=== PATIENT | female | born 1985 ===

== ENCOUNTER 2017-07-21 14:00 | Emergency (ER) | payer SELFPAY ==
[2017-07-21 14:12] VITALS: TEMP 96
[2017-07-21 15:15] LABS: BASO # 0.1 K/uL (0.0-0.2); BASO % 0.8 % (0.0-2.0); EOS # 0.1 K/uL (0.0-0.7); HEMATOCRIT 33.7 % (34.0-47.0); LYMPH # 2.1 K/uL (1.0-4.3); LYMPH % 25.7 % (20.0-40.0); MEAN CELL VOLUME 87.2 fl (81.0-99.0); MEAN CORPUSCULAR HEMOGLOBIN 29.9 pg (27.0-31.0); MEAN CORPUSCULAR HGB CONC 34.3 g/dL (33.0-37.0); MEAN PLATELET VOLUME 8.8 fl (7.2-11.7); MONO # 0.5 K/uL (0.0-0.8); MONO % 5.9 % (0.0-10.0); NEUT # 5.5 K/uL (1.8-7.0); NEUT % 66.6 % (50.0-75.0); NRBC % 0.1 % (0.0-0.0); RED CELL DISTRIBUTION WIDTH 12.9 % (11.5-14.5); WHITE BLOOD COUNT 8.3 K/uL (4.8-10.8)
[2017-07-21 15:34] LABS: ALB/GLOB RATIO 1.4 (1.0-2.1); ALKALINE PHOSPHATASE 52 U/L (38-126); ALT/SGPT 27 U/L (9-52); AST/SGOT 22 U/L (14-36); BILIRUBIN,TOTAL 0.1 mg/dl (0.2-1.3); BLOOD UREA NITROGEN 10 mg/dl (7-17); CALCIUM 9.3 mg/dL (8.4-10.2); CARBON DIOXIDE 23 mmol/L (22-30); CHLORIDE 104 mmol/L (98-107); GFR AFRICAN-AMERICAN > 60; GLUCOSE,RANDOM 90 mg/dL (65-105); POTASSIUM 3.8 MMOL/L (3.6-5.0); SODIUM 141 mmol/l (132-148); TOTAL PROTEIN 7.3 G/DL (6.3-8.2)
--- NOTE | 2017-07-21 15:34 | ED PDOC ---
HPI: General Adult Time Seen by Provider: 07/21/17 14:28 Chief Complaint (Nursing): Abdominal Pain History Per: Patient Additional Complaint(s): Pt. states for the past 2-3 days she's had constant non-radiating suprapubic pain. Pt. states she is currently ~7 weeks but has yet to get any care. LMP 05/29/2017. . Reports no hx of previous ectopic pregnancies. Denies N/V/D, fever, previous abdominal surgeries, melena, hematochezia, BRBPR, dysuria, flank pain, back pain, vaginal bleeding, vaginal discharge. Past Medical History Reviewed: Historical Data, Nursing Documentation, Vital Signs Vital Signs: Last Vital Signs Temp 96.0 F L 07/21/17 14:10 Pulse 73 07/21/17 14:10 Resp 16 07/21/17 14:10 BP 100/50 L 07/21/17 14:10 Pulse Ox 99 07/21/17 15:36 - Surgical History Surgical History: No Surg Hx - Family History Family History: States: No Known Family Hx - Home Medications Home Medications: Ambulatory Orders Medication Instructions Recorded Multivit/Folic Acid/I 1 tab PO DAILY #30 tab 07/21/17 [ Plus] - Allergies Allergies/Adverse Reactions: Allergies Allergy/AdvReac Type Severity Reaction Status Date / Time No Known Allergies Allergy Verified 07/21/17 14:10 Review of Systems ROS Statement: Except As Marked, All Systems Reviewed And Found Negative Genitourinary Female: Positive for: Pelvic Pain Physical Exam - Physical Exam Appears: Positive for: Well, Non-toxic, No Acute Distress Skin: Positive for: Normal Color, Warm. Negative for: Rash Eye Exam: Positive for: Normal appearance Cardiovascular/Chest: Positive for: Regular Rate, Rhythm Respiratory: Positive for: CNT, Normal Breath Sounds Gastrointestinal/Abdominal: Positive for: Normal Exam, Bowel Sounds, Soft. Negative for: Tenderness Back: Positive for: Normal Inspection. Negative for: L CVA Tenderness, R CVA Tenderness Extremity: Positive for: Normal ROM Neurologic/Psych: Positive for: Alert, Oriented. Negative for: Aphasia, Facial Droop - Laboratory Results Result Diagrams: 07/21/17 15:04 07/21/17 16:10 Urine POC: Positive Urine dip results: Negative for: Leukocyte Esterase, Blood, Nitrate, Ketones, Glucose, Bilirubin, Protein - ECG O2 Sat by Pulse Oximetry: 99 - Progress ED Course And Treament: Labs ordered. TVUS ordered. TVUS: Live single intrauterine with estimated gestational age 6 weeks 6 days by crown-rump length calculation and 6 weeks 4 days by gestational sac calculation. heart rate 137.2 bpm. Small probable subchorionic hemorrhage measures approximately 1.8 x 0.9 x 1.0 cm. Probable 5 mm right ovarian calcification, nonspecific. Advise an anomaly screen at 16-18 weeks gestational age. Pt. informed of results and instructed to f/u with her OBGYN for further evaluation. Reports no pain at this time. Disposition - Clinical Impression Clinical Impression: Abdominal pain during - Patient ED Disposition Is Patient to be Admitted: No - Disposition Referrals: [facility] [place] [Outside] [facility] [Outside] [facility] [Outside] Disposition: Routine/Home Disposition Time: 18:16 Condition: STABLE Prescriptions: Multivit/Folic Acid/I [ Plus] 1 tab PO DAILY #30 tab Instructions: Abdominal Pain in (ED) Forms: [employer] (Croatian) Print Language: MICRONESIAN
--- NOTE | 2017-07-21 17:48 | US ---
Indication: Pelvic pain Comparison: None available Technique: Transvaginal pelvic ultrasound. Findings: The uterus measures approximately 6.6 x 4.1 x 5.4 cm. Retroverted. Cervix length measures approximately 3.2 cm. There is a single intrauterine fetus present. 4 mm yolk sac. The gestational sac measures 2.1 cm and is compatible with a gestational age of 6 weeks 4 days. The crown-rump length measures 0.9 cm and is compatible with a gestational age of 6 weeks 6 days. There is heart motion which measured 137.2 BPM. Small probable subchorionic hemorrhage measures approximately 1.8 x 0.9 x 1.0 cm. The right ovary measures 2.9 x 1.2 x 2.0 cm and contains evidence of small calcification measuring approximately 5 x 2 x 3 mm. The left ovary measures 2.2 x 1.2 x 1.4 cm. Blood flow was demonstrated to both ovaries. Impression: Live single intrauterine with estimated gestational age 6 weeks 6 days by crown-rump length calculation and 6 weeks 4 days by gestational sac calculation. heart rate 137.2 bpm. Small probable subchorionic hemorrhage measures approximately 1.8 x 0.9 x 1.0 cm. Probable 5 mm right ovarian calcification, nonspecific. Advise an anomaly screen at 16-18 weeks gestational age.
[2017-07-21 18:33] VITALS: BP 111/53; PULSE 72; RESP 15; O2SAT 98
== END 2017-07-21 18:32 | disposition home or self-care (01) ==
LOC: H.ER 14:00
DX: O26.899 Other specified pregnancy related conditions, unspecified trimester (principal)

== ENCOUNTER 2017-09-06 14:19 | Emergency (ER) | payer SELFPAY ==
[2017-09-06 14:33] VITALS: BP 102/61; PULSE 84; RESP 19; TEMP 97.6; O2SAT 99
[2017-09-06] MEDS ORDERED: Sodium Chloride 0.9% 1,000 ML IV STA (15:22)
--- NOTE | 2017-09-06 15:26 | ED PDOC ---
HPI: Abdomen Time Seen by Provider: 09/06/17 15:12 Chief Complaint (Nursing): Abdominal Pain Chief Complaint (Provider): Abd pain History Per: Patient History/Exam Limitations: no limitations Onset/Duration Of Symptoms: Days (few days) Outside of [place] travel?: No Additional Complaint(s): Pt. with epigastric and RUQ pain. No lower abd pain. No back pain, dyspnea, diarrhea, weakness. Nausea, gone now. No vomit. No fever, cough, runny nose, nasal congestion. No cough. Is preg. No vaginal bleeding. No dysuria. Past Medical History Reviewed: Nursing Documentation, Vital Signs Vital Signs: Last Vital Signs Temp 97.6 F 09/06/17 14:28 Pulse 84 09/06/17 14:28 Resp 19 09/06/17 14:28 BP 102/61 09/06/17 14:28 Pulse Ox 99 09/06/17 15:28 - Medical History PMH: Gastritis (not taking meds for it) - Surgical History Surgical History: Endoscopy (sept with no acute findings) - Family History Family History: States: Unknown Family Hx - Living Arrangements Living Arrangements: With Family - Social History Current smoker - smoking cessation education provided: No Alcohol: None Drugs: Denies - Home Medications Home Medications: Ambulatory Orders Medication Instructions Recorded Multivit/Folic Acid/I 1 tab PO DAILY #30 tab 07/21/17 [ Plus] - Allergies Allergies/Adverse Reactions: Allergies Allergy/AdvReac Type Severity Reaction Status Date / Time No Known Allergies Allergy Verified 07/21/17 14:10 Review of Systems ROS Statement: Except As Marked, All Systems Reviewed And Found Negative Gastrointestinal: Positive for: Abdominal Pain Physical Exam - Reviewed Nursing Documentation Reviewed: Yes Vital Signs Reviewed: Yes - Physical Exam Appears: Positive for: Non-toxic, No Acute Distress Head Exam: Positive for: ATRAUMATIC, NORMAL INSPECTION, NORMOCEPHALIC Skin: Positive for: Normal Color, Warm, DRY Eye Exam: Positive for: EOMI, Normal appearance, PERRL ENT: Positive for: Normal ENT Inspection Neck: Positive for: Normal, Painless ROM Cardiovascular/Chest: Positive for: Regular Rate, Rhythm Respiratory: Positive for: CNT, Normal Breath Sounds Gastrointestinal/Abdominal: Positive for: Bowel Sounds, Soft, Tenderness ( epigastic and across upper abd and left lower pelvic mild.). Negative for: Distended, Guarding Back: Positive for: Normal Inspection. Negative for: L CVA Tenderness, R CVA Tenderness Extremity: Positive for: Normal ROM. Negative for: Tenderness, Pedal Edema Neurologic/Psych: Positive for: Alert, Oriented - Laboratory Results Result Diagrams: 09/06/17 15:46 09/06/17 15:46 Interpretation Of Abn Labs: no acute - ECG O2 Sat by Pulse Oximetry: 99 Pulse Ox Interpretation: Normal - CT Scan/US US Other Rad Studies (CT/US): Read By Radiologist Other Rad Interpretation: liver hemangioma - Progress ED Course And Treament: 1810: Stable. AAOx3. Pain free. Tolerated PO. Fu with pcp. Disposition - Clinical Impression Clinical Impression: Threatened , Liver hemangioma - Patient ED Disposition Is Patient to be Admitted: No - Disposition Referrals: [facility] [Outside] - 09/08/17 [facility] [Outside[facility] - 09/08/17 Disposition: Routine/Home Disposition Time: 18:18 Condition: STABLE Additional Instructions: Return if not better in 3 days. You have a liver hemangioma. See the primary care provider for further evaluation and treatment in 3 days. Usted tiene un hemangioma heptico. Consulte al proveedor de atencin primaria para mraino evaluacin y tratamiento adicional en 3 reddy. Instructions: Threatened Miscarriage (ED), Abdominal Pain (ED) Forms: [facility] (Sinhala) Print Language: LITHUANIAN
[2017-09-06 15:53] LABS: BASO % 0.6 % (0.0-2.0); EOS % 0.8 % (0.0-4.0); HEMATOCRIT 33.8 % (34.0-47.0); LYMPH # 1.2 K/uL (1.0-4.3); LYMPH % 22.4 % (20.0-40.0); MEAN CELL VOLUME 87.9 fl (81.0-99.0); MEAN CORPUSCULAR HEMOGLOBIN 29.4 pg (27.0-31.0); MEAN CORPUSCULAR HGB CONC 33.5 g/dL (33.0-37.0); MEAN PLATELET VOLUME 8.8 fl (7.2-11.7); MONO # 0.4 K/uL (0.0-0.8); MONO % 7.7 % (0.0-10.0); NEUT # 3.8 K/uL (1.8-7.0); NEUT % 68.5 % (50.0-75.0); RED CELL DISTRIBUTION WIDTH 13.6 % (11.5-14.5); WHITE BLOOD COUNT 5.5 K/uL (4.8-10.8)
[2017-09-06 16:01] LABS: ALB/GLOB RATIO 1.2 (1.0-2.1); ALKALINE PHOSPHATASE 52 U/L (38-126); ALT/SGPT 41 U/L (9-52); AST/SGOT 29 U/L (14-36); BILIRUBIN,TOTAL 0.1 mg/dl (0.2-1.3); BLOOD UREA NITROGEN 7 mg/dl (7-17); CALCIUM 9.1 mg/dL (8.4-10.2); CARBON DIOXIDE 23 mmol/L (22-30); CHLORIDE 104 mmol/L (98-107); GFR AFRICAN-AMERICAN > 60; GLUCOSE,RANDOM 95 mg/dL (65-105); LIPASE 33 U/L (23-300); POTASSIUM 3.7 MMOL/L (3.6-5.0); SODIUM 139 mmol/l (132-148); TOTAL PROTEIN 7.5 G/DL (6.3-8.2)
--- NOTE | 2017-09-07 09:24 | US ---
HISTORY: upper abd pain; eval gall bladder COMPARISON: None. TECHNIQUE: Sonographic evaluation of the abdomen. FINDINGS: LIVER: Measures cm. Normal echogenicity of the liver parenchyma. 3.3 centimeter echogenic lesion in the right hepatic lobe, statistically most likely representing a hemangioma. GALLBLADDER: Unremarkable. No gallstones. COMMON BILE DUCT: Measures mm. No stones. No dilatation. PANCREAS: Unremarkable as visualized. No mass. No ductal dilatation. RIGHT KIDNEY: Measures cm. Normal echogenicity. No calculus, mass, or hydronephrosis. LEFT KIDNEY: Measures cm. Normal echogenicity. No calculus, mass, or hydronephrosis. SPLEEN: Normal in size and contour. No mass. AORTA: No aneurysmal dilatation. IVC: Unremarkable. OTHER FINDINGS: None. IMPRESSION: 3.3 centimeter echogenic lesion in the right hepatic lobe, statistically most likely representing a hemangioma.
--- NOTE | 2017-09-07 09:29 | US ---
PROCEDURE: HISTORY: preg and pain COMPARISON: TECHNIQUE: FINDINGS: Single live intrauterine fetus in variable presentation with an anterior fundal placenta without previa. Amniotic fluid is within normal limits. Gestational age is 14 weeks and 5 days based on the BPD. anatomic survey was not performed. heart motion at 143 beats per minute. Otherwise the uterus, cervix is unremarkable. IMPRESSION: As above.
== END 2017-09-06 18:39 | disposition home or self-care (01) ==
LOC: SUPCPDRO 14:19 → H.ER 14:19
DX: O20.0 Threatened abortion (principal); D18.03 Hemangioma of intra-abdominal structures; Z36.9 Encounter for antenatal screening, unspecified
CPT/HCPCS: 76705; 76815; 80053; 81025; 83690; 84702; 85025; 86850; 86900; 96361; 96374; 99283; J7040

== ENCOUNTER 2019-01-07 10:01 | Emergency (ER) | payer OTHER, SELFPAY ==
[2019-01-07 10:20] VITALS: RESP 18; TEMP 98.4
[2019-01-07] MEDS ORDERED: Sodium Chloride 0.9% 1,000 ML IV ONE ×2 (10:51→12:09)
[2019-01-07 11:13] LABS: BASO % 0.8 % (0.0-2.0); EOS # 0.1 K/uL (0.0-0.7); EOS % 1.3 % (0.0-4.0); LYMPH # 1.8 K/uL (1.0-4.3); LYMPH % 40.9 % (20.0-40.0); MEAN CELL VOLUME 88.1 fl (81.0-99.0); MEAN CORPUSCULAR HEMOGLOBIN 29.4 pg (27.0-31.0); MEAN CORPUSCULAR HGB CONC 33.3 g/dL (33.0-37.0); MEAN PLATELET VOLUME 9.4 fl (7.2-11.7); MONO # 0.4 K/uL (0.0-0.8); MONO % 9.9 % (0.0-10.0); NEUT # 2.1 K/uL (1.8-7.0); NEUT % 47.1 % (50.0-75.0); RBC 4.1 Mil/uL (3.80-5.20); RED CELL DISTRIBUTION WIDTH 13.1 % (11.5-14.5); WHITE BLOOD COUNT 4.4 K/uL (4.8-10.8)
[2019-01-07 11:20] LABS: INR 1.1; PROTHROMBIN TIME 12.2 Seconds (9.8-13.1); SQUAMOUS EPITHIAL 2 /hpf (0-5); URINE BILIRUBIN NEGATIVE (NEGATIVE); URINE BLOOD NEGATIVE (NEGATIVE); URINE CLARITY CLEAR (Clear); URINE COLOR YELLOW (YELLOW); URINE GLUCOSE (UA) NEG (NEGATIVE); URINE LEUKOCYTE ESTERASE NEG Leu/uL (Negative); URINE PROTEIN NEGATIVE (NEGATIVE); URINE UROBILINOGEN 0.2-1.0 mg/dL (0.2-1.0)
[2019-01-07 11:35] LABS: ALB/GLOB RATIO 1.3 (1.0-2.1); ALBUMIN 4.4 g/dL (3.5-5.0); ALT/SGPT 72 U/L (9-52); AST/SGOT 50 U/L (14-36); BLOOD UREA NITROGEN 16 mg/dl (7-17); GFR NON-AFRICAN AMERICAN > 60
[2019-01-07 11:36] LABS: BENZODIAZEPINES, UR NEGATIVE (NEGATIVE)
[2019-01-07 12:22] LABS: BARBITURATES, UR NEGATIVE (NEGATIVE); OPIATES, UR NEGATIVE (NEGATIVE); PHENCYCLIDINE, UR NEGATIVE (NEGATIVE)
--- NOTE | 2019-01-07 13:03 | ED PDOC ---
HPI: Influenza Time Seen by Provider: 01/07/19 10:31 Chief Complaint: Dizziness/Lightheaded Chief Complaint (Provider): Influenza History Per: Patient Exam Limitations: language barrier ([id number] ([id number])) Onset/Duration Of Symptoms: Days (three to four) Symptoms include: headache, bodyaches, other (dizziness) Hx Influenza Vaccination: No Additional complaint(s):: Pt presents to the ED with symptoms that include a mild fever (afebrile on p resentation) body aches and a headache for several days. She is also indicateing that she often feels dehydrated and is currently breast feeding a 10 month old. Pt denies other symptoms including ill contacts Past Medical History Reviewed: Historical Data, Nursing Documentation, Vital Signs Vital Signs: Last Vital Signs Temp 98.4 F 01/07/19 10:16 Pulse 72 01/07/19 10:16 Resp 18 01/07/19 10:16 BP 103/62 01/07/19 10:16 Pulse Ox 99 01/07/19 10:16 - Medical History PMH: Gastritis (not taking meds for it) - Surgical History Surgical History: Endoscopy (sept with no acute findings) - Family History Family History: States: Unknown Family Hx - Home Medications Home Medications: Ambulatory Orders Medication Instructions Recorded Multivit/Folic Acid/I 1 tab PO DAILY #30 tab 07/21/17 [ Plus] Oseltamivir Phosphate [Tamiflu] 75 mg PO BID #10 capsule 01/07/19 - Allergies Allergies/Adverse Reactions: Allergies Allergy/AdvReac Type Severity Reaction Status Date / Time No Known Allergies Allergy Verified 07/21/17 14:10 Review of Systems ROS Statement: Except As Marked, All Systems Reviewed And Found Negative Constitutional: Positive for: Fever, Weakness Musculoskeletal: Positive for: Other (body ache) Neurological: Positive for: Headache Physical Exam - Reviewed Nursing Documentation Reviewed: Yes Vital Signs Reviewed: Yes - Physical Exam Appears: Positive for: Well, Non-toxic, No Acute Distress Head Exam: Positive for: ATRAUMATIC, NORMAL INSPECTION Skin: Positive for: Normal Color, Warm, Dry. Negative for: Diaphoresis, Pallor, Rash Eye Exam: Positive for: Normal appearance, PERRL. Negative for: Periorbital swelling, Periorbital tenderness ENT: Positive for: Normal ENT Inspection. Negative for: Pharyngeal Erythema, Tonsillar Exudate, Tonsillar Swelling Neck: Positive for: Normal, Painless ROM, Supple Cardiovascular/Chest: Positive for: Regular Rate, Rhythm Respiratory: Positive for: Normal Breath Sounds Pulses-Carotid (L): 2+ Pulses-Carotid (R): 2+ Pulses-Radial (L): 2+ Pulses-Radial (R): 2+ Back: Positive for: Normal Inspection. Negative for: L CVA Tenderness, R CVA Tenderness Medical Decision Making Medical Decision Making: I: R/O influenza R/O dehydration P: Flu swab CBC and CMP UA Pt feels much better after IV fluids Tx with tamiflu in ED and rx to follow - Laboratory Results Result Diagrams: 01/07/19 10:55 01/07/19 10:55 Lab Results: PT 12.2 Seconds (9.8-13.1) 01/07/19 10:55 INR 1.1 01/07/19 10:55 APTT 32.0 Seconds (25.6-37.1) 01/07/19 10:55 Troponin I < 0.0120 ng/mL (0.00-0.120) 01/07/19 10:55 Total Bilirubin 0.2 mg/dl (0.2-1.3) 01/07/19 10:55 AST 50 U/L (14-36) H D 01/07/19 10:55 ALT 72 U/L (9-52) H D 01/07/19 10:55 Alkaline Phosphatase 79 U/L (38-126) 01/07/19 10:55 Total Protein 7.7 G/DL (6.3-8.2) 01/07/19 10:55 Albumin 4.4 g/dL (3.5-5.0) 01/07/19 10:55 Globulin 3.4 gm/dL (2.2-3.9) 01/07/19 10:55 Albumin/Globulin Ratio 1.3 (1.0-2.1) 01/07/19 10:55 Urine Color Yellow (YELLOW) 01/07/19 10:55 Urine Clarity Clear (Clear) 01/07/19 10:55 Urine pH 5.0 (5.0-8.0) 01/07/19 10:55 Ur Specific [place] 1.021 (1.003-1.030) 01/07/19 10:55 Urine Protein Negative mg/dL (NEGATIVE) 01/07/19 10:55 Urine Glucose (UA) Neg mg/dL (NEGATIVE) 01/07/19 10:55 Urine Ketones Negative mg/dL (NEGATIVE) 01/07/19 10:55 Urine Blood Negative (NEGATIVE) 01/07/19 10:55 Urine Nitrate Negative (NEGATIVE) 01/07/19 10:55 Urine Bilirubin Negative (NEGATIVE) 01/07/19 10:55 Urine Urobilinogen 0.2-1.0 mg/dL (0.2-1.0) 01/07/19 10:55 Ur Leukocyte Esterase Neg Esther/uL (Negative) 01/07/19 10:55 Urine RBC (Auto) 1 /hpf (0-3) 01/07/19 10:55 Urine Microscopic WBC 2 /hpf (0-5) 01/07/19 10:55 Ur Squamous Epith Cells 2 /hpf (0-5) 01/07/19 10:55 - ECG O2 Sat by Pulse Oximetry: 99 Disposition - Clinical Impression Clinical Impression: Influenza B - Patient ED Disposition Is Patient to be Admitted: No Doctor Will See Patient In The: Office - Disposition Referrals: [facility] [Outside] Disposition: Routine/Home Disposition Time: 13:26 Condition: STABLE Prescriptions: Oseltamivir Phosphate [Tamiflu] 75 mg PO BID #10 capsule Instructions: Flu, Adult (DC), Flu Forms: [facility] (Mexican), [facility] (Pashto) Print Language: YAKUT
[2019-01-07 14:29] VITALS: BP 125/70; PULSE 69; O2SAT 98
--- NOTE | 2019-01-07 17:11 | CARD ---
APPROVED REPORT Date of service: 01/07/2019 EKG Measurement Heart [id number] <Conclusion> Sinus bradycardia Otherwise normal ECG
== END 2019-01-07 14:29 | disposition home or self-care (01) ==
LOC: H.ER 10:01
DX: J10.1 Influenza due to other identified influenza virus with other respiratory manifestations (principal)
CPT/HCPCS: 80053; 80324; 80345; 80346; 80349; 80353; 80358; 80361; 81003; 81025; 82948; 83992; 84484; 85025; 85610; 85730; 87804; 93005; 96360; 99285; J7030